=== PATIENT | female | born 1985 | race Caucasian/White ===

== ENCOUNTER 2024-02-14 18:11 | Emergency (ER) | payer OTHER, SELFPAY ==
[2024-02-14] VITALS (9 sets, daily range): BP systolic 105–135; BP diastolic 69–90; PULSE 68–83; BMI 33.8
[2024-02-14 18:35] LABS: % Basophils 0.2 % (0-2); % Eosinophils 0.6 % (0-6); % Immature Granulocytes 0.2 % (0-0.5); % Lymphocytes 29.8 % (20.5-51.1); % Monocytes 6.1 % (1.7-9.3); % Neutrophils 63.1 % (42.2-75.2); Absolute Eosinophils 0.1 10^3/uL (0-0.7); Absolute Monocytes 0.6 10^3/uL (0.1-0.6); Absolute Neutrophils 6.4 10^3/uL (1.4-6.5); Hematocrit 40.3 % (37.0-47.0); Hemoglobin 13.4 g/dL (12.0-16.0); Mean Corp Hgb Conc. 33.3 g/dL (33.0-37.0); Mean Corpuscular Hgb 28.1 pg (27.0-31.0); Mean Corpuscular Volume 84.5 fL (81.0-99.0); Mean Platelet Volume 11.2 fL (7.4-10.4); Nucleated Red Blood Cells % 0 %; Platelet Count 265 10^3/uL (130-400); Red Blood Cell Count 4.77 10^6/uL (4.20-5.40); Red Cell Dist. Width 13.4 % (11.5-14.5); White Blood Cell Count 10.1 10^3/uL (4.8-10.8)
[2024-02-14 18:44] LABS: ALT (SGPT) 19 U/L (0-35); AST (SGOT) 20 U/L (14-36); Albumin 4.4 g/dl (3.5-5.0); Alkaline Phosphatase 56 U/L (38-126); Blood Urea Nitrogen 14 mg/dl (7-17); Calcium 9.4 mg/dl (8.4-10.2); Carbon Dioxide 24 mmol/L (22-30); Chloride 102 mmol/L (98-107); Glucose 95 mg/dl (70-99); Potassium 4.1 mmol/L (3.5-5.1); Sodium 141 mmol/L (135-145); Total Bilirubin 0.2 mg/dl (0.2-1.3); Total Protein 7.7 g/dl (6.3-8.2); eGFR > 60.00
[2024-02-14 20:49] LABS: D-Dimer 0.67 ug/mlFEU (0.00-0.50)
[2024-02-14 20:54] LABS: Magnesium 1.9 mg/dl (1.6-2.3)
[2024-02-14 21:07] LABS: Urine Albumin Negative (Neg - Trace); Urine Bilirubin Negative (Negative); Urine Character Clear (Clear); Urine Color Yellow; Urine Glucose Negative (Negative); Urine Ketone Negative (Negative); Urine Leukocyte Negative (Negative); Urine Nitrite Negative (Negative); Urine Occult Blood Negative (Negative); Urine Urobilinogen Negative (Neg - 1+)
--- NOTE | 2024-02-14 21:10 | ED.GENMED ---
History of Present Illness
General
Chief Complaint: Fainting Sensation
Source: patient
Exam Limitations: none
Time Seen by Provider: 02/14/24 19:28
Nursing documentation reviewed up to this point in time: agreed with
History of Present Illness
History of Present Illness:
Patient presents to the Emergency Department secondary to intermittent episodes of dizziness, associated with near syncope, when standing up from sitting position. Patient states that her symptoms has happened on 2 different occasions, especially
at nighttime. However, it occurred again this afternoon as well. Patient does state that she is under heavy stress, as she is currently taking care of her child who is requiring significant medical attention. As such, patient has not been
sleeping well but has been eating her normal meals and staying hydrated. Of note, patient did experience similar episode couple years ago, requiring evaluation with her primary care physician as well as [employer] physician, as she has been taking
control pills. She had an unremarkable workup at that time, and has been symptom-free until this week. Denies chest pain or chest palpitations. Denies shortness of breath. Denies back pain. Denies leg pain or swelling. Denies recent travel or
surgery. Denies recent illness. Of note, patient states that her sister was recently diagnosed with 'brain tumor', and that has been wearing on her mind.
Review of Systems
Review of Systems
Allergies reviewed?: Yes
All Other Systems: ROS reviewed and negative except as documented in HPI and ROS
Constitutional: Reports no symptoms; Denies fever or chills
EENT: Reports no symptoms
Respiratory: Reports no symptoms; Denies trouble breathing
Cardiac: Reports no symptoms; Denies chest pain, diaphoresis or palpitations
ABD/GI: Reports no symptoms; Denies nausea or vomiting
Musculoskeletal: Reports no symptoms
Skin: Reports no symptoms
Neurological: Denies dizzy, headache or weakness
Phy Exam
Physical Exam
Physical Exam:
Physical Exam
General: no apparent distress, not acutely ill. afebrile
Head: nc/at. eomi
Neck: supple. no meningeal signs.
Heart: s1/s2 regular rate and rhythm, no murmur. equal radial pulses.
Lungs: no acute respiratory distress. clear bilaterally
Abdomen: normal bowel sounds. not tender.
Neuro: alert and oriented x 3. no focal neurological deficits
Skin: no rash
Psychiatric: well kept. interactive and cooperative
Extremities: no edema. no calf tenderness.
Course
Orders/Labs/Results
Orders:
Orders
02/14/24 18:15
EKG [Electrocardiogram (*1)] Urgent
Reason for Study: Vertigo / Dizzy
02/14/24 18:16
EKG- Treatment ONCE
02/14/24 18:22
CBC/With Diff [Complete Blood Count/With Diff] Urgent
CMP [Comprehensive Metabolic Panel] Urgent
HCG, Serum Qualitative Screen Urgent
Comment: ADD ON
Magnesium Urgent
Comment: ADD ON
TSH Reflex To Free T4 Urgent
Comment: ADD ON
02/14/24 20:18
Add On- LAB Urgent
Tests Added?: TSH to reflex free T4, magnesium, serum B-HCG qualitative
02/14/24 20:28
D-Dimer Urgent
02/14/24 21:00
Urinalysis Reflex To Culture Urgent
Date Specimen was Collected: 02/14/24
Time Specimen was Collected: 20:59
02/14/24 21:38
CT Head W/o Iv Contrast Urgent
Comment:
Reason For Exam: dizziness w near syncope
Abnormal Lab Results
02/14/24 02/14/24
18:22 20:28
MPV 11.2 H fL
(7.4-10.4)
D-Dimer 0.67 H ug/mlFEU
(0.00-0.50)
02/14/24 18:22
02/14/24 18:22
Vital Signs
Initial and Last Documented VS:
Initial Vital Signs
Temp Pulse Resp BP Pulse Ox
98.4 F 73 15 135/84 99
02/14/24 18:17 02/14/24 18:17 02/14/24 18:17 02/14/24 18:17 02/14/24 18:17
Last Documented Vital Signs
Temp Pulse Resp BP Pulse Ox
98.2 F 66 15 116/87 100
02/14/24 18:56 02/14/24 23:00 02/14/24 23:00 02/14/24 23:00 02/14/24 20:06
MDM/Problems Addressed
MDM/Problems Addressed:
Patient with an unremarkable workup in ED, including blood work, EKG, orthostatic vital signs, as well as CT head. Patient's presenting symptoms likely multifactorial, including her current stressor at home. Otherwise, patient is afebrile,
hemodynamically stable, and neurologically intact, without any acute distress, at time of discharge. Advised PCP follow-up with any further concerns.
*EKG
Interpreted by ED Provider?: Yes
EKG Intrepretation Date: 02/14/24
Heart Rate: 67
Rate: normal
Rhythm: sinus
Sun: normal axis
Interval: normal interval
QRS Pattern: normal QRS
*Critical Care Note
Total Time (30-74mins, 75-104mins- exclusive of procedures): Not Applicable
ED Attending Note
-
Portions of this chart may have been created with voice recognition software.� Occasional wrong word or��sound alike� substitutions may have occurred due to the inherent limitations of voice recognition software.
Discharge Plan
Departure
Patient Disposition: Home (Routine Discharge)
Date of Disposition: 02/14/24
Time of Disposition: 22:59
Patient with high blood pressure during this ER visit?: Yes
Condition: Good
Discharge Problem:
Syncope, near
Instructions: Near Fainting (DC)
Referrals:
Caty Teixeira, YOLIS [Family Provider] -
Activity Restrictions/Additional Instructions:
As discussed, please follow-up with your primary care physician for reevaluation.
Interventions
Interventions:
*Risk Screen - Suicide Last Done: 02/14/24 18:17
*General Assessment Last Done: 02/14/24 18:17
*Neglect/Abuse Screening Last Done: 02/14/24 18:17
ED- Fall Risk Assessment Last Done: 02/14/24 19:22
*ED COVID-19 Vaccine History Last Done: 02/14/24 19:24
*Nursing Disposition Last Done: 02/14/24 23:04
ED- Cardiac Assessment Last Done: 02/14/24 19:22
ED- Neurological Assessment Last Done: 02/14/24 19:22
Discharge Date and Time
Discharge Date/Time: 02/14/24 23:05
Print Language: JORDANIAN
[2024-02-14 21:42] LABS: HCG, Serum Qualitative Screen Negative
[2024-02-14 21:53] LABS: TSH Reflex To Free T4 0.75 uIU/ml (0.47-4.68)
== END 2024-02-14 23:05 | disposition home or self-care (01) ==
LOC: EMR 18:11
PROVIDERS: Emergency Medicine; EMERGENCY PHYSICIAN Emergency Medicine; FAMILY PHYSICIAN Nurse Practitioner Family
DX: R55 Syncope and collapse (principal); Z79.3 Long term (current) use of hormonal contraceptives
CPT/HCPCS: 99284; 70450; 80053; 81003; 83735; 84443; 84703; 85025; 85379; 93005